=== PATIENT | male | born 1995 | race Caucasian/White ===

== ENCOUNTER 2018-04-24 08:46 | Emergency (ER) | payer OTHER ==
--- NOTE | 2018-04-24 09:40 | ER Document Report ---
ED Medical Screen (RME) - General Chief Complaint: Chest Pain Stated Complaint: CHEST PAIN Time Seen by Provider: 04/24/18 09:35 Primary Care Provider: ANDRAE HAYNES MD [Primary Care Provider] - Follow up as needed Notes: Patient was awakened this morning around 4 AM by pain in the mid anterior substernal region of the chest. It also extended somewhat into the epigastric region. Pain was increased by deep breathing. Has had some cough over the last week or 2. Was seen by a primary care provider 10 days ago and diagnosed with the flu. He had cough and some GI symptoms at that time and a family member was also sick with similar symptoms. No medications were given. Patient says he was running a fever of 103 2 days ago. Also felt feverish yesterday. Says he spit out some blood yesterday, but felt it was coming from in his mouth, not being coughed up. She has no significant past medical history. On no medications. Only has seasonal allergies. Does not smoke cigarettes. Only surgery was on his foot. TRAVEL OUTSIDE OF THE [place] IN LAST 30 DAYS: No - Related Data Allergies/Adverse Reactions: No Known Allergies Allergy (Unverified 04/24/18 09:04) Past Medical History Renal/ Medical History: Denies: Hx Peritoneal Dialysis Past Surgical History: Reports: Hx Orthopedic Surgery Physical Exam - Vital signs Vitals: Temp Pulse Resp BP Pulse Ox 98.1 F 73 20 115/58 L 96 04/24/18 09:02 04/24/18 09:02 04/24/18 09:02 04/24/18 09:02 04/24/18 09:02 Course - Vital Signs Vital signs: Temp Pulse Resp BP Pulse Ox 98.1 F 73 20 115/58 L 96 04/24/18 09:02 04/24/18 09:02 04/24/18 09:02 04/24/18 09:02 04/24/18 09:02 Doctor's Discharge - Discharge Referrals: ANDRAE HAYNES MD [Primary Care Provider] - Follow up as needed
--- NOTE | 2018-04-24 09:58 | RADIOLOGY REPORT (SQ) ---
EXAM DESCRIPTION: CHEST 2 VIEWS COMPLETED DATE/TIME: 04/24/2018 9:50 am REASON FOR STUDY: Substernal chest pain, cough, fever COMPARISON: None. EXAM PARAMETERS: NUMBER OF VIEWS: two views TECHNIQUE: Digital Frontal and Lateral radiographic views of the chest acquired. RADIATION DOSE: NA LIMITATIONS: none FINDINGS: LUNGS AND PLEURA: Heterogeneous opacity of the left lung base. MEDIASTINUM AND HILAR STRUCTURES: No masses or contour abnormalities. HEART AND VASCULAR STRUCTURES: Heart normal size. No evidence for failure. BONES: No acute findings. HARDWARE: None in the chest. OTHER: No other significant finding. IMPRESSION: Heterogeneous opacity of the left lung base, concerning for infection or aspiration. TECHNICAL DOCUMENTATION: JOB ID: [id number] [employer]- All Rights Reserved Reading location - IP/workstation name: [email or web address]
[2018-04-24 09:59] LABS: ABSOLUTE EOSINOPHILS # (AUTO) 0.1 10^3/uL (0.0-0.6); ABSOLUTE LYMPHOCYTES (AUTO) 2.1 10^3/uL (0.5-4.7); ABSOLUTE MONOCYTES (AUTO) 0.9 10^3/uL (0.1-1.4); ABSOLUTE NEUT (AUTO) 5.3 10^3/uL (1.7-8.2); BASOPHILS % (AUTO) 0.5 % (0-2); EOSINOPHILS % (AUTO) 0.9 % (0-6); HEMATOCRIT 37.2 % (37.9-51.0); HEMOGLOBIN 12.9 g/dL (13.5-17.0); LYMPHOCYTES % (AUTO) 24.6 % (13-45); MEAN CORPUSCULAR HEMOGLOBIN 30.8 pg (27.0-33.4); MEAN CORPUSCULAR HGB CONC 34.8 g/dL (32.0-36.0); MEAN CORPUSCULAR VOLUME 88 fl (80-97); MONOCYTES % (AUTO) 10.8 % (3-13); PLATELET COUNT 166 10^3/uL (150-450); RED BLOOD COUNT 4.21 10^6/uL (4.35-5.55); RED CELL DISTRIBUTION WIDTH 12.4 % (11.5-14.0); SEGMENTED NEUTROPHILS % (AUTO) 63.2 % (42-78); TOTAL CELLS COUNTED % (AUTO) 100 %; WHITE BLOOD COUNT 8.4 10^3/uL (4.0-10.5)
--- NOTE | 2018-04-24 10:01 | ER Document Report ---
ED Cardiac - General Chief Complaint: Chest Pain Stated Complaint: CHEST PAIN Time Seen by Provider: 04/24/18 09:35 Primary Care Provider: ANDRAE HAYNES MD [PEDIATRICS] - Follow up as needed Notes: Patient is a 22-year-old male who presents today with the onset around 11 days ago of some diarrhea and abdominal pain. His son has similar symptoms 2 days prior. He was seen by the primary doctor the next day and had a positive nasal swab influenza test. No Tamiflu was provided. Patient was doing well until around 2 days ago. He spiked a temperature of 102. He also had some congestion, runny nose, and cough. He states some anterior chest discomfort starting around 4 AM this morning. He states it is pleuritic. He does state yesterday he also spit up a little bit of "blood". No calf pain, leg swelling, cancer history, family history of DVT/PE. Patient currently denies any shortness of breath. No recent trips or travel. He denies any abdominal discomfort or flank pain. TRAVEL OUTSIDE OF THE [place] IN LAST 30 DAYS: No - Related Data Allergies/Adverse Reactions: No Known Allergies Allergy (Unverified 04/24/18 09:04) Past Medical History - Social History Smoking Status: Former Smoker Family History: Reviewed & Not Pertinent Patient has suicidal ideation: No Patient has homicidal ideation: No Renal/ Medical History: Denies: Hx Peritoneal Dialysis Past Surgical History: Reports: Hx Orthopedic Surgery Review of Systems - Review of Systems Constitutional: Fever EENT: Nose congestion, Nose discharge. denies: Eye discharge Respiratory: denies: Short of breath Gastrointestinal: denies: Vomiting Genitourinary: denies: Dysuria Musculoskeletal: denies: Leg swelling Skin: Other - no hives. denies: Rash Neurological/Psychological: Other - no slurred speech -: Yes All other systems reviewed and negative Physical Exam - Vital signs Vitals: Temp Pulse Resp BP Pulse Ox 98.1 F 73 20 115/58 L 96 04/24/18 09:02 04/24/18 09:02 04/24/18 09:02 04/24/18 09:02 04/24/18 09:02 Notes: Reviewed vital signs and nursing note as charted by RN. CONSTITUTIONAL: Alert and oriented and responds appropriately to questions. Well-appearing; well-nourished HEAD: Normocephalic; atraumatic EYES: PERRL; Conjunctivae clear, sclerae non-icteric ENT: Normal nose; bilateral nonpurulent none copious nasal rhinorrhea; moist mucous membranes; pharynx without lesions noted NECK: Supple without meningismus; non-tender; no cervical lymphadenopathy, no masses CARD: Regular rate and rhythm; no murmurs; symmetric distal pulses RESP: Normal chest excursion without splinting or tachypnea; no tenderness to palpation of the anterior chest wall; breath sounds clear and equal bilaterally; no wheezes, no rhonchi, no rales ABD/GI: Normal bowel sounds; non-distended; soft, non-tender; no palpable organomegaly or masses BACK: The back appears normal and is non-tender to palpation EXT: Normal ROM in all joints; non-tender to palpation; no edema SKIN: No acute lesions noted NEURO: CN 2-12 intact; 5/5 bilateral upper and lower extremity strength with sensation intact to light touch PSYCH: The patient's mood and manner are appropriate. Grooming and personal hygiene are appropriate. Course - Re-evaluation Re-evalutation: 04/24/18 09:59 Given the history and physical examination we will order basic labs, x-ray of the chest, EKG, and place the patient on the monitor. Given the pleuritic nature of the pain with some possible hemoptysis yesterday, despite having a fever, we will obtain a d-dimer. I would like to evaluate the possibility of a pneumonia, pneumothorax, or pulmonary embolism. Patient denies any and all abdominal discomfort subjectively. No objective tenderness on exam. EKG shows a heart rate of 70, normal sinus rhythm, normal axis, no ST elevation or depression 04/24/18 10:33 X-ray and d-dimer as recorded. CTA has been ordered. We will most likely start the patient on a course of antibiotics. Patient is not hypoxic or tachycardic. 04/24/18 11:50 CTA of the chest shows no obvious pulmonary embolism. Echo is currently taking place. Cardiology is currently consulting. Aspirin has been provided. Patient denies any chest pain. Levaquin has already been provided. - Vital Signs Vital signs: Temp Pulse Resp BP Pulse Ox 98.1 F 73 21 H 109/63 96 04/24/18 09:02 04/24/18 09:02 04/24/18 11:03 04/24/18 11:03 04/24/18 11:03 - Laboratory Result Diagrams: 04/24/18 09:42 04/24/18 09:42 Laboratory results interpreted by me: 04/24/18 04/24/18 09:42 09:42 RBC 4.21 L Hgb 12.9 L Hct 37.2 L D-Dimer 0.56 H Critical Care Note - Critical Care Note Total time excluding time spent on procedures (mins): 35 Discharge - Discharge Clinical Impression: Myopericarditis, Left pulmonary infiltrate on CXR Condition: Fair Disposition: [facility] Referrals: ANDRAE HAYNES MD [PEDIATRICS] - Follow up as needed
[2018-04-24 10:05] LABS: ALANINE AMINOTRANSFERASE 39 U/L (21-72); ALBUMIN 4.4 g/dL (3.5-5.0); ALKALINE PHOSPHATASE 52 U/L (38-126); ANION GAP 10 (5-19); ASPARTATE AMINO TRANSFERASE 58 U/L (17-59); BILIRUBIN,DIRECT 0.3 mg/dL (0.0-0.4); BILIRUBIN,TOTAL 0.5 mg/dL (0.2-1.3); BLOOD UREA NITROGEN 14 mg/dL (7-20); CALCIUM 9.9 mg/dL (8.4-10.2); CARBON DIOXIDE 28 mmol/L (22-30); CHLORIDE 103 mmol/L (98-107); GLUCOSE 98 mg/dL (75-110); POTASSIUM 4.4 mmol/L (3.6-5.0); SODIUM 140.8 mmol/L (137-145); TOTAL PROTEIN 7.2 g/dL (6.3-8.2)
[2018-04-24] MEDS ORDERED: LEVOFLOXACIN 750 MG TABLET PO ONE (10:33)
[2018-04-24] MEDS ORDERED: ASPIRIN 325 MG TABLET PO ONE (11:05)
--- NOTE | 2018-04-24 11:41 | RADIOLOGY REPORT (SQ) ---
EXAM DESCRIPTION: CTA CHEST COMPLETED DATE/TIME: 04/24/2018 11:06 am REASON FOR STUDY: 13; chest pain with elevated d dimer COMPARISON: Same day chest radiograph TECHNIQUE: CT scan of the chest performed using helical scanning technique with dynamic intravenous contrast injection. Images reviewed with lung, soft tissue and bone windows. Reconstructed coronal and sagittal MPR images reviewed. Additional 3 dimensional post-processing performed to develop Maximal Intensity Projection images (OK P). All images stored on PACS. All CT scanners at this facility use dose modulation, iterative reconstruction, and/or weight based d osing when appropriate to reduce radiation dose to as low as reasonably achievable (ALARA). [facility]: Dose Right [facility]: CareDose [facility]: Dose Right [facility]: Teradose 4D [facility]: [employer] CONTRAST TYPE AND DOSE: contrast/concentration: Isovue 350.00 mg/ml; Total Contrast Delivered: 74.0 ml; Total Saline Delivered: 80.0 ml Contrast bolus optimized for the pulmonary arteries. Not diagnostic for the aorta. RENAL FUNCTION: None required. The patient is less than 50 years old. RADIATION DOSE: CT Rad equipment meets quality standard of care and radiation dose reduction techniq ues were employed. CTDIvol: 15.2 - 29.8 mGy. DLP: 566 mGy-cm. . LIMITATIONS: None. FINDINGS: LUNGS AND PLEURA: There is heterogeneous opacity and consolidation of the anterior left lo wer lobe. No pleural effusions or pleural calcifications. AORTA AND GREAT VESSELS: No aneurysm. Contrast bolus not optimized for the aorta. HEART: No pericardial effusion. No significant coronary artery calcifications. PULMONARY ARTERIES: No emboli visualized in the main pulmonary arteries or the segmental branches. HILAR AND MEDIASTINAL STRUCTURES: No identified masses or abnormal nodes. HARDWARE: None in the chest. UPPER ABDOMEN: No significant findings. Limited exam. THYROID AND OTHER SOFT TISSUES: No masses. No adenopathy. BONES: No acute or significant finding. 3D MIPS: Confirm above findings. OTHER: No other significant finding. IMPRESSION: 1. Negative examination for pulmonary embolism. 2. Heterogeneous opacity and consolidation of the anterior left lower lobe, in keeping with findings of prior radiograph and consistent with infection. COMMENT: Quality ID # [id number]: Final reports with documentation of one or more dose reduction techniques (e.g., Automated exposure control, adjustment of the mA and/or kV according to patient size, use of iterative reconstruction technique) TECHNICAL DOCUMENTATION: JOB ID: [id number] [employer]- All Rights Reserved Reading location - IP/workstation name: [email or web address]
[2018-04-24 11:48] LABS: URINE AMPHETAMINES SCREEN NEGATIVE; URINE BARBITURATES SCREEN NEGATIVE; URINE BENZODIAZEPINES SCREEN NEGATIVE; URINE COCAINE SCREEN NEGATIVE; URINE MARIJUANA (THC) SCREEN NEGATIVE; URINE METHADONE SCREEN NEGATIVE; URINE PHENCYCLIDINE SCREEN NEGATIVE
[2018-04-24] MEDS ORDERED: COLCHICINE 0.6 MG TABLET PO ONE (12:18)
--- NOTE | 2018-04-24 13:37 | XCELERA REPORT ---
[address] [address] Transthoracic Echocardiogram Report Name: GHANSHYAM SOTELO JR Age: 22 yrs Gender: Male : 1995 Patient Status: Emergency Patient Location: ER Study Date: 04/24/2018 12:21 PM Height: 67 in Weight: 173 lb BSA: 1.9 m2 Reason For Study: 13; echo Ordering Physician: TEOFILO GAINES Performed By: Lee Morales Interpretation Summary Study quality fair. LV acvity normal szied with normal LVEF at 55-60%. RV size and systolic function appears normal. Doppler measurements suggest normal left ventricular diastolic function The aortic valve opens well. There is a trace amount of mitral regurgitation There is a mild amount of pulmonic regurgitation The aortic root is normal size. IVC size and respiratory variation within normal limits. estimated mean RAP 3 mm Hg No significant pericardial effusion noted but trace pericardial effusion cannot be excluded. MMode/2D Measurements & Calculations RVDd: 2.5 cm LVIDd: 5.4 cm FS: 31.9 % Ao root diam: 2.6 cm IVSd: 0.53 cm LVIDs: 3.7 cm EDV(Teich): Ao root area: LVPWd: 0.61 cm 141.7 ml ESV(Teich): 57.5 ml 5.2 cm2 LA dimension: 3.0 cm EF(Teich): 59.4 % LVOT diam: 1.7 cmLVLd ap4: 9.1 cm SV(MOD-sp4): LVOT area: EDV(MOD-sp4): 88.0 ml 2.3 cm2 150.0 ml LVLs ap4: 7.9 cm ESV(MOD-sp4): 62.0 ml EF(MOD-sp4): 58.7 % Doppler Measurements & Calculations MV E max danyelle: MV P1/2t max danyelle: Ao V2 max: LV V1 max P.8 cm/sec 95.7 cm/sec 118.8 cm/sec 4.5 mmHg MV A max danyelle: MV P1/2t: 92.1 msec Ao max PG: LV V1 mean P.9 cm/sec 5.6 mmHg 2.4 mmHg MV E/A: 1.9 MVA(P1/2t): 2.4 cm2 Ao V2 mean: LV V1 max: MV dec slope: 88.9 cm/sec 106.6 cm/sec 304.5 cm/sec2 MV dec time: 0.15 sec Ao mean PG: LV V1 mean: 3.4 mmHg 71.0 cm/sec Ao V2 VTI: 26.3 cm LV V1 VTI: 20.8 cm MONIKA(I,D): 1.8 cm2 MONIKA(V,D): 2.1 cm2 SV(LVOT): 48.3 ml PA V2 max: PI end-d danyelle: MV P1/2t-pr_phl: 66.4 cm/sec 89.0 cm/sec 92.1 msec PA max P.8 mmHg Left Ventricle The left ventricular ejection fraction is normal. LV EF is 55-60%. Doppler measurements suggest normal left ventricular diastolic function. The left ventricular wall motion is normal. Right Ventricle A moderator band is seen in the right ventricle. The right ventricle is normal size. The right ventricular systolic function is normal. Atria The right atrium is normal. The left atrial size is normal. Mitral Valve The mitral valve is normal in structure and function. There is a trace amount of mitral regurgitation. Aortic Valve The aortic valve opens well. AV leaflets mot well visualized but appears trileaflet with focal thickening of leaaflets. There is a peak gradient of 6 mm of Hg. Tricuspid Valve The tricuspid valve is not well visualized secondary to technical limitations. Insufficient TR for RVSP estimation. Pulmonic Valve The pulmonic valve is not well visualized. There is a mild amount of pulmonic regurgitation. Great Vessels The aortic root is normal size. IVC size and respiratory variation within normal limits. estimated mean RAP 3 mm Hg. Effusions No significant pericardial effusion noted but trace pericardial effusion cannot be excluded. : TEOFILO GAINES > Torin Menjivar
--- NOTE | 2018-04-24 16:37 | EKG REPORT ---
SEVERITY:- NORMAL ECG - SINUS RHYTHM : Confirmed by: Luis M Garcia MD 24-Apr-2018 16:37:02
[2018-04-24 16:46] VITALS: BP 107/69
== END 2018-04-24 16:46 | disposition short-term general hospital (02) ==
LOC: ER 08:46
DX: I31.9 Disease of pericardium, unspecified (principal); J18.9 Pneumonia, unspecified organism; R07.9 Chest pain, unspecified; R19.7 Diarrhea, unspecified; R10.9 Unspecified abdominal pain; Z87.891 Personal history of nicotine dependence; R50.9 Fever, unspecified
CPT/HCPCS: 36415; 71046; 71275; 80053; 80307; 84484; 85025; 85379; 85652; 86140; 93005; 93010; 93306; 99291

== ENCOUNTER → 2018-11-30 | Outpatient (CLI) | payer MEDICAID ==
[2018-11-30 09:47] LABS: HEMATOCRIT 41.1 % (37.9-51.0); HEMOGLOBIN 13.9 g/dL (13.5-17.0); MEAN CORPUSCULAR HEMOGLOBIN 29.6 pg (27.0-33.4); MEAN CORPUSCULAR HGB CONC 33.8 g/dL (32.0-36.0); MEAN CORPUSCULAR VOLUME 88 fl (80-97); PLATELET COUNT 183 10^3/uL (150-450); RED BLOOD COUNT 4.69 10^6/uL (4.35-5.55); RED CELL DISTRIBUTION WIDTH 12.6 % (11.5-14.0); WHITE BLOOD COUNT 8.9 10^3/uL (4.0-10.5)
[2018-11-30 10:10] LABS: ALBUMIN 4.6 g/dL (3.5-5.0); ALKALINE PHOSPHATASE 50 U/L (38-126); ANION GAP 9 (5-19); ASPARTATE AMINO TRANSFERASE 22 U/L (17-59); BILIRUBIN,DIRECT 0.1 mg/dL (0.0-0.4); BILIRUBIN,TOTAL 0.5 mg/dL (0.2-1.3); BLOOD UREA NITROGEN 19 mg/dL (7-20); CARBON DIOXIDE 29 mmol/L (22-30); CHLORIDE 104 mmol/L (98-107); GLUCOSE 86 mg/dL (75-110); POTASSIUM 4.4 mmol/L (3.6-5.0); TRIGLYCERIDES 145 mg/dL (<150)
[2018-11-30 10:19] LABS: DIRECT LDL 125 mg/dL (<100)
[2018-11-30 10:25] LABS: C-REACTIVE PROTEIN < 5.0 mg/L (<10.0)
[2018-11-30 10:30] LABS: ERYTHROCYTE SEDIMENTATION RATE 5 mm/hr (0-15)
== END ==
LOC: OD 09:06
PROVIDERS: ATTEND Physician Assistant
DX: R07.89 Other chest pain (principal); R00.2 Palpitations; Z13.220 Encounter for screening for lipoid disorders
CPT/HCPCS: 36415; 80048; 80061; 80076; 83735; 84443; 85027; 85652; 86140

== ENCOUNTER → 2019-02-21 | Outpatient (CLI) | payer MEDICAID ==
--- NOTE | 2019-02-21 19:29 | DRAGON STRESS TEST REPORT ---
Exercise EKG treadmill Cardiolite stress test using SPECT. Data procedure: 02/21/2019. Ordering Physician: Dr. Luis M DIAZ Indication: Chest pain: Coronary risk factors: None Significant physical findings prior to stress testing show a blood pressure of 123/68, and a heart rate of 67 beats per minute. Auscultation of the heart shows normal S1 and S2. No S3 or S4 gallops. Systolic murmur in the left sternal border and apex. Lungs are clear to auscultation and percussion. Resting 12-lead EKG:. Sinus Rhythm. EKG within normal limits. Procedure: The patient was excised on a standard Kamlesh protocol. . The patient walked a total of 11 minutes and 11 seconds on this protocol and reached a peak heart rate of 184 beats per minute, which is 93 % maximum predicted heart rate for age. This is at an excellent workload of 13.40 METS. The test was stopped because of achievement of adequate target heart rate. The patient described no symptoms of chest pain/discomfort. Exercise EKG's show: There is no EKG evidence of exercise-induced ischemia. Arrhythmias seen: None. The blood pressure response was normal. At peak exercise the blood pressure was 161/62 millimeters of Hg. The double product was 29.6 K. Summary of findings and interpretation: 1. No chest pain or chest discomfort symptoms reproduced. 2. No EKG evidence of ischemia in the form of ST segment depression. 3. Normal blood pressure response. 4. No arrhythmias seen. 5. Excellent exercise tolerance, and excellent aerobic capacity. Diagnostic treadmill stress test negative for ischemia by EKG criteria. Recommendations: Correlate with nuclear Cardiolite images. Nuclear data: At rest the patient was given 11.78 millicuries of technetium 99 sestamibi, and as per protocol rest gated SPECT images were obtained. The patient was exercised on a treadmill [see exercise physiology]. One minute prior to termination of exercise, 34.7 millicuries of technetium and there sestamibi was injected intravenously. As per protocol stress gated images were obtained. Impression: Review of images show that all segments of the myocardium had normal perfusion at rest, and normal perfusion post exercise. All segments of the myocardium had normal motion, contraction, and thickening by gated study. T. I D. ratio was 0.97. There is no transient ischemic dilatation of the left ventricle.. The computer read rest and stress left ventricular ejection fractions were 58 %, and 57 % respectively. Conclusions: 1. No clinical symptoms of exercise-induced myocardial ischemia at a peak heart rate of 184 beats per minute, patient having achieved 93 % of maximum predicted heart rate for age, at an excellent workload of 13.4 METS. 2. No EKG evidence of exercise-induced myocardial ischemia. 3. Normal blood pressure response to exercise. 4. No arrhythmias seen. 5.No scintigraphic evidence of exercise-induced myocardial ischemia. 6.No scintigraphic evidence of myocardial infarction/scar. Recommendations Aggressive coronary risk factor modification, and treatment of underlying comorbidities. MTDD
== END ==
LOC: RAD 06:51
PROVIDERS: ATTEND Internal Medicine Cardiovascular Disease
DX: R07.89 Other chest pain (principal)
CPT/HCPCS: 93017; 78452; A9500; Q9969

== ENCOUNTER → 2019-11-15 | Outpatient (CLI) | payer MEDICAID ==
[2019-11-15 13:48] LABS: HEMATOCRIT 40.7 % (37.9-51.0); HEMOGLOBIN 14.4 g/dL (13.5-17.0); MEAN CORPUSCULAR HEMOGLOBIN 30.9 pg (27.0-33.4); MEAN CORPUSCULAR HGB CONC 35.4 g/dL (32.0-36.0); MEAN CORPUSCULAR VOLUME 87 fl (80-97); PLATELET COUNT 195 10^3/uL (150-450); RED BLOOD COUNT 4.66 10^6/uL (4.35-5.55); RED CELL DISTRIBUTION WIDTH 12.3 % (11.5-14.0); WHITE BLOOD COUNT 6.5 10^3/uL (4.0-10.5)
[2019-11-15 14:04] LABS: ALBUMIN 4.7 g/dL (3.5-5.0); ALKALINE PHOSPHATASE 52 U/L (38-126); ANION GAP 8 (5-19); ASPARTATE AMINO TRANSFERASE 25 U/L (17-59); BILIRUBIN,DIRECT 0.2 mg/dL (0.0-0.4); BILIRUBIN,TOTAL 0.3 mg/dL (0.2-1.3); BLOOD UREA NITROGEN 12 mg/dL (7-20); CALCIUM 9.8 mg/dL (8.4-10.2); CARBON DIOXIDE 27 mmol/L (22-30); CHLORIDE 107 mmol/L (98-107); CHOLESTEROL 187.78 mg/dL (0-200); GLUCOSE 98 mg/dL (75-110); POTASSIUM 4.5 mmol/L (3.6-5.0); TOTAL PROTEIN 7.9 g/dL (6.3-8.2); TRIGLYCERIDES 84 mg/dL (<150)
[2019-11-15 14:13] LABS: DIRECT LDL 123 mg/dL (<100)
[2019-11-15 14:18] LABS: C-REACTIVE PROTEIN < 5.0 mg/L (<10.0)
== END ==
LOC: OD 13:17
PROVIDERS: ATTEND Physician Assistant
DX: E78.00 Pure hypercholesterolemia, unspecified (principal); I51.4 Myocarditis, unspecified; R07.89 Other chest pain
CPT/HCPCS: 36415; 80048; 80061; 80076; 85027; 86140